=== PATIENT | female | born 1960 | race Caucasian/White ===

== ENCOUNTER 2017-01-06 19:59 | Emergency (ER) | payer OTHER ==
[~2017-01-06] VITALS: Ht 162.6 cm; Wt 84.4 kg
[2017-01-06 19:59] VITALS: BP 151/77
[~2017-01-06 19:59] MED LIST: MECL25TA3 PO
--- NOTE | 2017-01-06 20:46 | PHYS DOC ---
Past History Past Medical History: Asthma, Bipolar, Other Past Surgical History: No Surgical History, Tubal ligation Smoking: Cigarettes, Greater than 1 pack/day Alcohol Use: None Drug Use: None Adult General Chief Complaint Chief Complaint: ABNORMAL LABS [facility] HPI SHe is a pleasant 56-year-old female on multiple medications for her bipolar disorder, asthma who presents with reported hyperkalemia. She was seen at her primary care doctor's office for routine well check and the blood work was completed yesterday. She received a focal earlier this evening saying that her potassium level was 6.4. Patient has no complaints, no concerns, no symptoms. She is here just following instructions. She admits according to the physician that sent her here. She has on medications that may be causing her potassium to be elevated. Review of Systems Review of Systems Constitutional: Denies fever or chills [] Eyes: Denies change in visual acuity, redness, or eye pain [] HENT: Denies nasal congestion or sore throat [] Respiratory: Denies cough or shortness of breath [] Cardiovascular: No additional information not addressed in HPI [] GI: Denies abdominal pain, nausea, vomiting, bloody stools or diarrhea [] : Denies dysuria or hematuria [] Musculoskeletal: Denies back pain or joint pain [] Integument: Denies rash or skin lesions [] Neurologic: Denies headache, focal weakness or sensory changes [] Endocrine: Denies polyuria or polydipsia [] Allergies Allergies Allergies Coded Allergies Type Severity Reaction Last Updated Verified No Known Allergies Allergy Unknown 04/08/16 Yes Physical Exam Physical Exam Constitutional: Well developed, well nourished, no acute distress, non-toxic appearance. [] HENT: Normocephalic, atraumatic, bilateral external ears normal, oropharynx moist, no oral exudates, nose normal. [] Eyes: PERRLA, EOMI, conjunctiva normal, no discharge. [] Neck: Normal range of motion, no tenderness, supple, no stridor. [] Cardiovascular:Heart rate regular rhythm, no murmur [] Lungs & Thorax: Bilateral breath sounds clear to auscultation [] Abdomen: Bowel sounds normal, soft, no tenderness, no masses, no pulsatile masses. [] Skin: Warm, dry, no erythema, no rash. [] Extremities: No tenderness, no cyanosis, no clubbing, ROM intact, no edema. [] Neurologic: Alert and oriented X 3, normal motor function, normal sensory function, no focal deficits noted. [] Psychologic: Affect normal, judgement normal, mood normal. [] EKG EKG []EEG done on arrival timed 8:11 PM 01/06/2017 read by me demonstrate a heart rate of 81 there is a P-wave to every QRS interval this is normal sinus rhythm with a CO interval of 180 which is normal, QRS width of 86 which is normal, QTC which is 409 which is normal, there are no abnormalities consistent with acute hyperkalemia noted. Radiology/Procedures Radiology/Procedures [] Course & Med Decision Making Course & Med Decision Making Pertinent Labs and Imaging studies reviewed. (See chart for details) she presents with a history of being told she has hyperkalemia. Patient has no symptoms at this time upon arrival EKG shows no signs of hyperkalemia there are no flattened P waves are no PT waves no widening of the QRS complex. Patient will have a CMP completed and we will verify her potassium level. Time is now 9:23 PM patient's potassium was 4.5. Given her normal EKG and what seems to be a normal potassium I will send her home with follow-up with her PCP. [] Dragon Disclaimer Dragon Disclaimer This chart was dictated in whole or in part using Voice Recognition software in a busy, high-work load, and often noisy Emergency Department environment. It may contain unintended and wholly unrecognized errors or omissions. Departure Departure: Impression: Primary Impression: Well adult exam Disposition: HOME, SELF-CARE Condition: STABLE Referrals: PCP,CHIKIS (PCP) Patient Instructions: Basics of Medication Management Additional Instructions: My discharge plan Follow up: In addition patient is asked to followup with their primary doctor, within a week for followup examination and to address patient's ongoing medical conditions. Because patient does not have a regular medical doctor, a local physician Resource Sheet will be provided to establish care primary care. Patient is advised that in the Emergency Department primary complaints are addressed and only in light of known signs and symptoms. Patient should return immediately to the emergency department if new signs and symptoms develop or patient's condition worsens in any way. At time of discharge patient was in stable condition and had verbalized understanding of the discharge instructions. NITHIN CARTER MD Jan 06, 2017 20:46
[2017-01-06 21:12] LABS: ALBUMIN 3.2 g/dL (3.4-5.0); ALBUMIN/GLOBULIN RATIO 0.8 (1.0-1.7); CALCIUM 9.6 mg/dL (8.5-10.1); GFR 57.4; POTASSIUM 4.5 mmol/L (3.5-5.1); TOTAL BILIRUBIN 0.2 mg/dL (0.2-1.0); TOTAL PROTEIN 7.3 g/dL (6.4-8.2)
--- NOTE | 2017-01-07 02:04 | EKG ---
[address] [address] Test Date: 2017-01-06 Test Time: 20:11:42 Pat Name: KIRAN GARZA Department: Room: Gender: F [employer]: EMILIA : 1960 Requested By: NITHIN CARTER Order Number: [id number] Reading MD: Omar Donis Measurements Intervals [place] Rate: 81 P: 59 TN: 180 QRS: 53 QRSD: 86 T: 46 QT: 348 QTc: 409 Interpretive Statements SINUS RHYTHM Electronically Signed On 01-11-2017 8:19:36 CDT by Omar Donis
== END 2017-01-06 21:38 | disposition home or self-care (01) ==
LOC: ER 19:59
DX: Z00.00 Encounter for general adult medical examination without abnormal findings (principal); E87.5 Hyperkalemia; J45.909 Unspecified asthma, uncomplicated; F31.9 Bipolar disorder, unspecified; F17.210 Nicotine dependence, cigarettes, uncomplicated
CPT/HCPCS: 36415; 80053; 93005; 99285-25

== ENCOUNTER → 2017-05-23 | Outpatient (CLI) | payer OTHER ==
[2017-05-23 11:01] LABS: BASO # 0.1 x10^3/uL (0.0-0.2); BASO % 1 % (0-3); EOS # 0.2 x10^3/uL (0.0-0.7); EOS % 2 % (0-3); HEMATOCRIT 41.4 % (36.0-47.0); HEMOGLOBIN 13.6 g/dL (12.0-15.5); LYMPH # 2.3 x10^3/uL (1.0-4.8); LYMPH % 30 % (24-48); MEAN CORPUSCULAR HEMOGLOBIN 29 pg (25-35); MEAN CORPUSCULAR HGB CONC 33 g/dL (31-37); MEAN CORPUSCULAR VOLUME 89 fL (79-100); MONO # 0.7 x10^3/uL (0.0-1.1); MONO % 9 % (0-9); NEUT # 4.4 x10^3uL (1.8-7.7); NEUT % 58 % (31-73); PLATELET COUNT 257 x10^3/uL (140-400); RED BLOOD COUNT 4.65 x10^6/uL (3.50-5.40); RED CELL DISTRIBUTION WIDTH 14.5 % (11.5-14.5); WHITE BLOOD COUNT 7.6 x10^3/uL (4.0-11.0)
[2017-05-23 11:11] LABS: ALBUMIN 3.3 g/dL (3.4-5.0); ALBUMIN/GLOBULIN RATIO 0.7 (1.0-1.7); CALCIUM 9.3 mg/dL (8.5-10.1); CREATININE 1.1 mg/dL (0.6-1.0); GFR 51.4; POTASSIUM 4.6 mmol/L (3.5-5.1); TOTAL BILIRUBIN 0.1 mg/dL (0.2-1.0); TOTAL PROTEIN 7.8 g/dL (6.4-8.2)
[2017-05-23 13:28] LABS: FREE T4 0.85 ng/dL (0.76-1.46); THYROID STIM HORMONE (TSH) 1.174 uIU/mL (0.358-3.740)
== END | disposition home or self-care (01) ==
LOC: LAB 10:36
PROVIDERS: ATTEND Physician Assistant
DX: Z51.81 Encounter for therapeutic drug level monitoring (principal); Z79.899 Other long term (current) drug therapy; E87.5 Hyperkalemia; F17.210 Nicotine dependence, cigarettes, uncomplicated; F15.10 Other stimulant abuse, uncomplicated
CPT/HCPCS: 36415; 80053; 80061; 84439; 84443; 84480; 85025

== ENCOUNTER → 2017-06-28 | Outpatient (CLI) | payer OTHER ==
--- NOTE | 2017-07-12 12:09 | RAD ---
DATE: 06/28/2017 EXAM: DIGITAL SCREEN BILAT W/CAD HISTORY: Routine screening COMPARISON: 04/29/2014 This study was interpreted with the benefit of Computerized Aided Detection (CAD). The breast parenchyma shows scattered fibroglandular densities. Breast parenchyma level B. FINDINGS: No new or enlarging breast densities are seen. There are scattered microcalcifications in both breasts. The distribution again suggests a benign etiology. IMPRESSION: There is no mammographic evidence of malignancy in either breast. BI-RADS CATEGORY: 2 BENIGN FINDING(S) RECOMMENDED FOLLOW-UP: 12M 12 MONTH FOLLOW-UP PQRS compliance statement: Patient information was entered into a reminder system with a target due date for the next mammogram. Mammography is a sensitive method for finding small breast cancers, but it does not detect them all and is not a substitute for careful clinical examination. A negative mammogram does not negate a clinically suspicious finding and should not result in delay in biopsying a clinically suspicious abnormality. "Our facility is accredited by the [employer] Mammography Program."
== END | disposition home or self-care (01) ==
LOC: MAMMO 11:22
PROVIDERS: ATTEND Nurse Practitioner Family
DX: Z12.31 Encounter for screening mammogram for malignant neoplasm of breast (principal)
CPT/HCPCS: 77067

== ENCOUNTER 2017-08-21 21:21 | Inpatient (IN) | payer OTHER ==
[~2017-08-21] VITALS: Ht 162.6 cm; Wt 86.4 kg
--- NOTE | 2017-08-21 21:30 | ED.ADGEN ---
Past History Past Medical History: Asthma, Bipolar, Other Past Surgical History: No Surgical History, Tubal ligation Smoking: Cigarettes, Greater than 1 pack/day Alcohol Use: None Drug Use: None Adult General Chief Complaint Chief Complaint ".. All sudden I got pain in this Lt. leg... it been there all day..." HPI HPI Patient is a 56 year old female who presents with above hx and complaints left leg pain and edema. Patient denies any trauma to left leg. Pain is localized generalized throughout leg. There is some noted decrease of dorsal and posterior pedal pulses as compared to right leg. Capillary refilled more than 3 seconds in toes. There is noted edema in left leg. There is tenderness in left groin. No history of prior episodes of DVT or coagulopathy or prior similar presentations. Patient does smoke. No recent travel. No specific ill contacts. Has had multiple chigger bites to left ankle which appears somewhat inflamed. Patient denies any history of immunosuppression. Review of Systems Review of Systems Constitutional: Denies fever or chills [] Eyes: Denies change in visual acuity, redness, or eye pain [] HENT: Denies nasal congestion or sore throat [] Respiratory: Denies cough or shortness of breath [] Cardiovascular: No additional information not addressed in HPI [] GI: Denies abdominal pain, nausea, vomiting, bloody stools or diarrhea [] : Denies dysuria or hematuria [] Musculoskeletal: Denies back pain or joint pain []Complaints of Lt Leg pain. Integument: Denies rash or skin lesions [] Neurologic: Denies headache, focal weakness or sensory changes [] Endocrine: Denies polyuria or polydipsia [] All other systems were reviewed and found to be within normal limits, except as documented in this note. Family History Family History Non-contributory Current Medications Current Medications Current Medications Medications (Trade) Dose Ordered Sig/Sanjuana Start Time Stop Time Status Last Admin Dose Admin Aspirin (Children'S Aspirin) 81 mg DAILY 08/22/17 09:00 Ceftriaxone Sodium (Rocephin Im) 1 gm QHS 08/22/17 21:00 Enoxaparin Sodium (Lovenox 100mg Syringe) 90 mg 1X ONCE 08/21/17 22:00 08/21/17 22:07 DC 08/21/17 22:00 90 MG Enoxaparin Sodium (Lovenox 80mg Syringe) 80 mg BID 08/22/17 09:00 Ketorolac Tromethamine (Toradol) 15 mg 1X ONCE 08/21/17 22:00 08/21/17 22:08 DC 08/21/17 22:00 15 MG Lactated Ringer's 1,000 ml @ 1,000 mls/hr Q1H 08/21/17 22:00 08/21/17 22:59 DC 08/21/17 23:11 1,000 MLS/HR Tetanus/ Diphtheria Toxoids Adsorbed (Tenivac Vial) 0.5 ml ONCE ONCE 08/21/17 22:00 08/21/17 22:08 DC 08/21/17 22:00 0.5 ML Allergies Allergies Allergies Coded Allergies Type Severity Reaction Last Updated Verified No Known Allergies Allergy Unknown 04/08/16 Yes Physical Exam Physical Exam Constitutional: Moderately acute distress, non-toxic appearance. [] HENT: Normocephalic, atraumatic, bilateral external ears normal, oropharynx moist, no oral exudates, nose normal. [] Eyes: PERRLA, EOMI, conjunctiva normal, no discharge. [] Neck: Normal range of motion, no tenderness, supple, no stridor. [] Cardiovascular:Heart rate regular rhythm, no murmur [] Lungs & Thorax: Bilateral breath sounds equal apexes with scattered wheezes on auscultation [] Abdomen: Bowel sounds normal, soft, no tenderness, no masses, no pulsatile masses. [] Skin: Warm, dry, no erythema, no rash. [] Back: No tenderness, no CVA tenderness. [] Extremities: No tenderness, no cyanosis, no clubbing, ROM intact, no edema. [] Except finding in Lt. Leg as per HPI Neurologic: Alert and oriented X 3, normal motor function, normal sensory function, no focal deficits noted. [] Psychologic: Affect anxious, judgement normal, mood normal. [] Current Patient Data Vital Signs Vital Signs Date Time Temp Pulse Resp B/P (MAP) Pulse Ox O2 Delivery O2 Flow Rate FiO2 08/21/17 21:38 98.1 96 20 94 Room Air Lab Results Laboratory Tests Test 08/21/17 22:55 White Blood Count 14.6 x10^3/uL (4.0-11.0) H Red Blood Count 4.44 x10^6/uL (3.50-5.40) Hemoglobin 13.1 g/dL (12.0-15.5) Hematocrit 39.3 % (36.0-47.0) Mean Corpuscular Volume 88 fL (79-100) Mean Corpuscular Hemoglobin 29 pg (25-35) Mean Corpuscular Hemoglobin Concent 33 g/dL (31-37) Red Cell Distribution Width 13.3 % (11.5-14.5) Platelet Count 202 x10^3/uL (140-400) Neutrophils (%) (Auto) 80 % (31-73) H Lymphocytes (%) (Auto) 10 % (24-48) L Monocytes (%) (Auto) 8 % (0-9) Eosinophils (%) (Auto) 1 % (0-3) Basophils (%) (Auto) 1 % (0-3) Neutrophils # (Auto) 11.7 x10^3uL (1.8-7.7) H Lymphocytes # (Auto) 1.5 x10^3/uL (1.0-4.8) Monocytes # (Auto) 1.2 x10^3/uL (0.0-1.1) H Eosinophils # (Auto) 0.1 x10^3/uL (0.0-0.7) Basophils # (Auto) 0.1 x10^3/uL (0.0-0.2) Prothrombin Time 10.1 SEC (9.4-11.4) Prothrombin Time INR 1.0 (0.9-1.1) PTT 26 SEC (23-33) D-Dimer (Hattie) 4.66 mg/L (0.00-0.50) H Sodium Level 134 mmol/L (136-145) L Potassium Level 3.9 mmol/L (3.5-5.1) Chloride Level 100 mmol/L (98-107) Carbon Dioxide Level 24 mmol/L (21-32) Anion Gap 10 (6-14) Blood Urea Nitrogen 21 mg/dL (7-20) H Creatinine 1.6 mg/dL (0.6-1.0) H Estimated GFR (Cockcroft-Gault) 33.3 Glucose Level 126 mg/dL (70-99) H Calcium Level 8.6 mg/dL (8.5-10.1) Magnesium Level 2.1 mg/dL (1.8-2.4) Total Bilirubin 0.3 mg/dL (0.2-1.0) Direct Bilirubin 0.1 mg/dL (0.0-0.2) Aspartate Amino Transferase (AST) 23 U/L (15-37) Alanine Aminotransferase (ALT) 27 U/L (14-59) Alkaline Phosphatase 140 U/L (46-116) H Creatine Kinase 81 U/L (26-192) Creatine Kinase MB (Mass) 0.6 ng/mL (0.0-3.6) Creatine Kinase MB Relative Index 0.7 % (0-4) Troponin I Quantitative < 0.017 ng/mL (0-0.055) Total Protein 7.7 g/dL (6.4-8.2) Albumin 3.1 g/dL (3.4-5.0) L EKG EKG My interpretation EKG shows a sinus rhythm at 88 bpm. No findings acute morphology. [] Radiology/Procedures Radiology/Procedures My interpretation chest x-ray shows no acute cardiopulmonary findings. Does have increased atelectasis as compared to chest x-ray on 04/08/2016[] Course & Med Decision Making Course & Med Decision Making Pertinent Labs and Imaging studies reviewed. (See chart for details) Discussed presentation, testing and tx. plan with Dr. Higuera- will admit for further eval. and tx. US of Lt. leg pending at time of admission. [] Final Impression Final Impression 1. Lt. Leg[]Pain 2. Edema 3. Cellulitis 4. Chigger Bites 5. DM 6. Elevated Bun/Creat 7. Malnutrition 8. Leukocytosis- 14.6 9. Elevated D-dimer 10.Malnutrition- Alb. 3.1 Dragon Disclaimer Dragon Disclaimer This electronic medical record was generated, in whole or in part, using a voice recognition dictation system. JOHN LUCIA MD Aug 21, 2017 21:30
[2017-08-21] MEDS ORDERED: ENOXAPARIN ** NOTE DOSE ** SYRINGE SQ ONE (22:00)
[2017-08-21] MEDS ORDERED: KETOROLAC 15 MG/ML VIAL. IV ONE (22:00)
[2017-08-21] MEDS ORDERED: TETANUS AND DIPHTHERIA TOX/PF 0.5 ML VIAL. VAX IM ONE (22:00)
[2017-08-21] MEDS ORDERED: ASPIRIN 81 MG TAB.CHEW PO ONE (22:00)
[2017-08-21] MEDS ORDERED: cefTRIAXone IM 1 GM VIAL IM ONE (22:00)
[2017-08-21] MEDS ORDERED: IV RINGERS SOLUTION,LACTATED 1,000 ML IV SCH (22:00)
--- NOTE | 2017-08-21 22:07 | EKG ---
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
[2017-08-21 23:33] LABS: BASO # 0.1 x10^3/uL (0.0-0.2); BASO % 1 % (0-3); EOS # 0.1 x10^3/uL (0.0-0.7); EOS % 1 % (0-3); HEMATOCRIT 39.3 % (36.0-47.0); HEMOGLOBIN 13.1 g/dL (12.0-15.5); LYMPH # 1.5 x10^3/uL (1.0-4.8); LYMPH % 10 % (24-48); MEAN CORPUSCULAR HEMOGLOBIN 29 pg (25-35); MEAN CORPUSCULAR HGB CONC 33 g/dL (31-37); MEAN CORPUSCULAR VOLUME 88 fL (79-100); MONO # 1.2 x10^3/uL (0.0-1.1); MONO % 8 % (0-9); NEUT # 11.7 x10^3uL (1.8-7.7); NEUT % 80 % (31-73); PLATELET COUNT 202 x10^3/uL (140-400); RED BLOOD COUNT 4.44 x10^6/uL (3.50-5.40); RED CELL DISTRIBUTION WIDTH 13.3 % (11.5-14.5); WHITE BLOOD COUNT 14.6 x10^3/uL (4.0-11.0)
[2017-08-22 00:03] LABS: ALBUMIN 3.1 g/dL (3.4-5.0); CALCIUM 8.6 mg/dL (8.5-10.1); CREATININE 1.6 mg/dL (0.6-1.0); DIRECT BILIRUBIN 0.1 mg/dL (0.0-0.2); GFR 33.3; MAGNESIUM 2.1 mg/dL (1.8-2.4); POTASSIUM 3.9 mmol/L (3.5-5.1); TOTAL BILIRUBIN 0.3 mg/dL (0.2-1.0); TOTAL PROTEIN 7.7 g/dL (6.4-8.2)
[2017-08-22 01:45] VITALS: BP 112/67
[2017-08-22] MEDS ORDERED: DULO20CA50 PO (05:33)
[2017-08-22] MEDS ORDERED: TRAZ150T49 PO (05:34)
[2017-08-22 05:40] LABS: BACTERIA,URINE 0 /HPF (0-FEW); BILIRUBIN,URINE NEG (NEG); CLARITY,URINE CLEAR; COLOR,URINE YELLOW; GLUCOSE,URINE NEG (NEG); NITRITE,URINE NEG (NEG); RBC,URINE 0 /HPF (0-2); SQUAMOUS EPITHELIAL CELL,UR FEW /LPF; UROBILINOGEN,URINE 0.2 mg/dL (0.2 mg/dL); WBC,URINE OCC /HPF (0-4)
[2017-08-22 05:43] LABS: BARBITURATES NEG (NEG); BENZODIAZEPINES NEG (NEG); CANNABINOIDS NEG (NEG); COCAINE NEG (NEG); METHADONE NEG (NEG); OPIATES NEG (NEG); PHENCYCLIDINE NEG (NEG)
[2017-08-22 05:45] LABS: AMPHETAMINE/METHAMPHETAMINE NEG (NEG)
[2017-08-22 06:03] VITALS: BP 97/57
--- NOTE | 2017-08-22 08:32 | RAD ---
CHEST PA LATERAL History: SHORTNESS OF BREATH. Comparison: April 08, 2016. Cardiomediastinal silhouette is not enlarged. No focal infiltrate. No pleural effusion. No pneumothorax. IMPRESSION: No active disease in the chest Electronically signed by: Brandon Minaya MD (08/22/2017 8:28 AM) [id number]
[2017-08-22] MEDS: ENOXAPARIN ** NOTE DOSE ** SYRINGE SQ SCH ×2 (08:56→22:30)
[2017-08-22] MEDS: ASPIRIN 81 MG TAB.CHEW PO SCH (08:56)
[2017-08-22 10:16] LABS: BASO # 0.1 x10^3/uL (0.0-0.2); BASO % 1 % (0-3); EOS # 0.2 x10^3/uL (0.0-0.7); EOS % 3 % (0-3); HEMATOCRIT 36.8 % (36.0-47.0); HEMOGLOBIN 12.3 g/dL (12.0-15.5); LYMPH # 1.8 x10^3/uL (1.0-4.8); LYMPH % 20 % (24-48); MEAN CORPUSCULAR HEMOGLOBIN 30 pg (25-35); MEAN CORPUSCULAR HGB CONC 33 g/dL (31-37); MEAN CORPUSCULAR VOLUME 89 fL (79-100); MONO # 0.5 x10^3/uL (0.0-1.1); MONO % 6 % (0-9); NEUT # 6.7 x10^3uL (1.8-7.7); NEUT % 72 % (31-73); PLATELET COUNT 187 x10^3/uL (140-400); RED BLOOD COUNT 4.15 x10^6/uL (3.50-5.40); RED CELL DISTRIBUTION WIDTH 13.4 % (11.5-14.5); WHITE BLOOD COUNT 9.3 x10^3/uL (4.0-11.0)
[2017-08-22 10:24] LABS: ALBUMIN 2.7 g/dL (3.4-5.0); ALBUMIN/GLOBULIN RATIO 0.6 (1.0-1.7); CALCIUM 8.2 mg/dL (8.5-10.1); CREATININE 1.3 mg/dL (0.6-1.0); GFR 42.4; POTASSIUM 3.3 mmol/L (3.5-5.1); TOTAL BILIRUBIN 0.3 mg/dL (0.2-1.0)
[2017-08-22 11:32] VITALS: BP 101/61
[2017-08-22 14:57] VITALS: BP 94/56
[2017-08-22] MEDS ORDERED: MECLIZINE 12.5 MG TABLET. PO PRN (17:00)
[2017-08-22] MEDS ORDERED: DEXTROSE 50% 25 GM / 50ML DISP.SYRIN. IV PRN (17:15)
[2017-08-22] MEDS ORDERED: WARFARIN 10 MG TABLET. PO SCH (17:30)
--- NOTE | 2017-08-22 17:53 | RAD ---
INDICATION: Left leg redness and swelling. TECHNIQUE: Grayscale, color-flow, and spectral waveform analysis was performed. No comparison is available. FINDINGS: Right leg is negative for deep vein thrombosis with all vessels compressible and with normal phasicity of waveform and augmentation. Exam is positive for deep vein thrombosis in the left lower extremity. There is occlusive thrombus in the common femoral vein and superficial femoral vein. There is nonocclusive thrombus within the popliteal vein and deep femoral vein. There is nonocclusive thrombus in the great saphenous vein. IMPRESSION: 1. Exam is positive for deep vein thrombosis in the left lower extremity. 2. There is no deep vein thrombosis in the right lower extremity. Electronically signed by: Syed Lewis MD (08/22/2017 5:50 PM) [facility]
[2017-08-22] MEDS ORDERED: cefTRIAXone IV Push 1 GM VIAL. IVP SCH (18:00)
[2017-08-22] MEDS: IV NORMAL SALINE 1,000ML 1,000 ML IV SCH (18:29)
[2017-08-22] MEDS ORDERED: IOHEXOL 240 MG/ML 50ML VIAL. PO ONE (19:00)
[2017-08-22] MEDS ORDERED: CONTRAST GIVEN MC PRN (19:00)
[2017-08-22 19:24] VITALS: BP 124/75
[2017-08-22] MEDS: ACETAMINOPHEN 325 MG TABLET PO PRN (19:34)
[2017-08-22] MEDS ORDERED: cefTRIAXone IM 1 GM VIAL IM SCH (21:00)
[2017-08-22] MEDS ORDERED: traZODone 150 MG TABLET. PO SCH (21:00)
--- NOTE | 2017-08-22 22:11 | HP ---
ADMIT DATE: 08/22/2017 HISTORY OF PRESENT ILLNESS: The patient is a 56-year-old female patient who came to the Emergency Room complaining of pain in her left leg that started all of a sudden. She also complained of swelling. She denied any trauma to her left leg. Her pain is generalized throughout the leg. There is some noted degrees of dorsal and posterior pedal pulses as compared to the right leg. Capillary refill more than 30 seconds and loss. There is noted edema in the left leg. There is also tenderness in the left groin. She has no history of previous DVT or coagulopathy or prior similar presentation. She does smoke, has had multiple chigger bites in her left ankle, which appear somewhat inflamed. She was extensively investigated and her lab work showed that her white cell count was elevated at 14,600. Also, lab work showed an elevated BUN and creatinine. Her D-dimer was elevated at 4.66 and her urinalysis was unremarkable. Toxic screen was mostly negative. The patient was admitted with left leg pain and edema, questionable cellulitis, chigger bites, type 2 diabetes, [id number] versus acute kidney failure, malnutrition, leukocytosis, and elevated D-dimer and malnutrition. PAST MEDICAL HISTORY: Significant for type 2 diabetes, bipolar disorder. She has also chronic kidney disease versus acute on chronic kidney disease. MEDICATIONS: She is currently on following medications: She is on Cymbalta ____ mg once a day, trazodone 150 mg at bedtime and meclizine 25 mg 4 times a day. She is also on Latuda 10 mg once a day. ALLERGIES: She has no known drug allergies. FAMILY HISTORY: She has one sister and one brother, one sister older and one younger brother, both healthy. Her father at the age of 62 because of colon cancer. Mother at age of 51 because of brain tumor. SOCIAL HISTORY: She is , has 2 sons and 2 daughters. She smokes half a pack a day, does not drink alcohol or do recreational drugs. She is currently on disability. REVIEW OF SYSTEMS: The patient denied any blurring of vision, cataract, glaucoma or macular degeneration. Denied any earache, tinnitus or sensorineural deafness. Denied any nosebleeds, stuffy nose or postnasal drip. Denied any sore throat, sore tongue, toothache, hoarseness of voice or difficulty swallowing. Denied any nausea, vomiting, diarrhea or constipation. Denied any hematemesis, melena or hematochezia. Denied any dysuria, frequency or hematuria. Denied any chest pain, shortness of breath, orthopnea, paroxysmal nocturnal dyspnea. Denied any cough, phlegm or hemoptysis. Denied any chills, rigors, or fever. Denied any dizziness, lightheadedness, or vertigo. PHYSICAL EXAMINATION: GENERAL: On arrival to the Emergency Room, she was somewhat pale, no jaundice, cyanosis, or thyromegaly. No jugular venous distension. No limb edema. VITAL SIGNS: Her heart rate was 96, blood pressure was 108/61, temperature was 98.1, respiratory rate 20, and oxygen saturation was 94%. HEAD, EYES, EARS, NOSE, AND THROAT: Showed normocephalic, atraumatic. NECK: Supple. HEART: Showed normal first and second heart sounds. No gallop, rub or murmur. CHEST: Clear to auscultation. No crepitation or rhonchi. ABDOMEN: Distended, soft, nontender. No guarding or rigidity. No organomegaly. Hernial orifices intact. Bowel sounds normal. NEUROLOGIC: She was awake, alert, responding appropriately. Cranial nerves intact. She moves extremities without difficulty. She ambulates normally without assistance or assistive devices. LABORATORY DATA: Her lab work on admission showed a white cell count of 14,600, hemoglobin 13, hematocrit 39, MCV 88 and platelet count of ____. Her chemistry showed a serum sodium 134, potassium 3.9, chloride 100, bicarbonate 24, anion gap of 10, BUN 21, creatinine 1.6, estimated GFR was 53 mL per minute. Her glucose was 126, calcium was 8.6, magnesium 2.1. Total bilirubin, AST, ALT, alkaline phosphatase were normal. Her CK was 81, CK-MB was 0.6. Total protein 7.7, albumin 3.1. Her TSH was 1.113. Her prothrombin time was 10.1, INR of 1, aPTT was 26. D-dimer was 4.66. Urinalysis showed the urine was yellow, clear with a pH of 5.5, specific gravity 1.005. The urine was negative for protein, glucose, ketones, blood, nitrite, and trace of leukocyte esterase with 0 rbc's, occasional wbc's, and 0 bacteria. Toxic screen was negative. Her chest x-ray, which showed the cardiomediastinal silhouette is not enlarged. No local infiltrate, no pleural effusion or pneumothorax. IMPRESSION: The patient has no active disease. She was admitted and was started on IV antibiotic and Lovenox for possible left lower extremity deep vein thrombosis. She has received 1 liter of fluid. We will obviously repeat her labs tomorrow and next day and decide on further management, arrange for Doppler and arterial as Dr. Be recommended venous Doppler ultrasound; however, when I saw her, her arterial pulsation on the left dorsalis pedis and tibialis posterior easily palpable. We will do venous Doppler. I start her on IV fluid to improve her kidney function, so that we can do a V/Q scan. ANDRES RAMIREZ MD DR: DANIE/jero JOB#: [id number] / [id number]
[2017-08-22] MEDS: LACTOBACILLUS RHAMNOSUS GG 1 CAPSULE. PO SCH (22:29)
[2017-08-22 23:23] VITALS: BP 111/62
--- NOTE | 2017-08-23 00:33 | PN ---
DATE: 08/22/2017 SUBJECTIVE: The patient is resting, slightly propped up in bed, in no apparent distress. She continued to complain of pain, swelling of her left lower extremity. Swelling extends all the way to her groin; however, when she is lying flat, the redness disappears. According to her, she has some chigger bites in the anterior aspect of her left leg. Nursing staff did not voice any concern and stated that she had an uneventful night. PHYSICAL EXAMINATION: GENERAL: When I examined her this afternoon, she looked well and was clearly in no apparent respiratory distress, pale, but no jaundice, cyanosis or thyromegaly. No jugular venous distension. No limb edema. VITAL SIGNS: Her heart rate was 79, blood pressure was 94/56, temperature was 98.4, respiratory rate was 19 and oxygen saturation was 92%. HEAD, EYES, EARS, NOSE AND THROAT: Showed normocephalic, atraumatic. NECK: Supple. HEART: Showed normal first and second heart sounds with no gallop, rub or murmur. CHEST: Clear to auscultation. No crepitation or rhonchi. ABDOMEN: Distended, soft, nontender. No guarding or rigidity. No organomegaly. Hernial orifice intact. Bowel sounds normal. NEUROLOGIC: She is awake, alert, responding appropriately. Cranial nerves intact. She moves extremities without difficulty. Her intake was 1000. No output was recorded. LABORATORY DATA: This morning showed her white cell count is down to 9300, hemoglobin 12.3, hematocrit 36.8, MCV 89 and platelet count of 187,000. Her chemistry showed a serum sodium 135, potassium 3.3, chloride 102, bicarbonate 23, anion gap of 10, BUN 19, creatinine 1.3. Estimated GFR was 42 mL per minute. Her glucose 166. Calcium was 8.2. Total bilirubin, AST and ALT are normal. Alkaline phosphatase slightly elevated. Total protein 7, albumin 2.7. ASSESSMENT: Questionable left lower extremity cellulitis for which she is now on ceftriaxone, possible lower extremity deep vein thrombosis. I am concerned about the extent of the swelling. PLAN: My plan is to start her on IV fluid as her kidney function seems to be improving and I will arrange for her to have a CT scan of the abdomen and pelvis with oral contrast only to see if there is anything in the pelvic area causing pressure on the perhaps the veins and the lymphatics. ANDRES RAMIREZ MD DR: DANIE/jero JOB#: [id number] / [id number]
[2017-08-23] MEDS: IV NORMAL SALINE 1,000ML 1,000 ML IV SCH ×2 (03:59→13:42)
[2017-08-23 05:25] VITALS: BP 116/62
[2017-08-23] MEDS: ACETAMINOPHEN 325 MG TABLET PO PRN ×2 (05:26→13:44)
[2017-08-23 06:56] LABS: BASO # 0.1 x10^3/uL (0.0-0.2); BASO % 1 % (0-3); EOS # 0.2 x10^3/uL (0.0-0.7); EOS % 2 % (0-3); HEMATOCRIT 34.5 % (36.0-47.0); HEMOGLOBIN 11.6 g/dL (12.0-15.5); LYMPH # 1.4 x10^3/uL (1.0-4.8); LYMPH % 14 % (24-48); MEAN CORPUSCULAR HEMOGLOBIN 30 pg (25-35); MEAN CORPUSCULAR HGB CONC 34 g/dL (31-37); MEAN CORPUSCULAR VOLUME 88 fL (79-100); MONO % 9 % (0-9); NEUT # 7.8 x10^3uL (1.8-7.7); NEUT % 75 % (31-73); PLATELET COUNT 196 x10^3/uL (140-400); RED CELL DISTRIBUTION WIDTH 13.2 % (11.5-14.5); WHITE BLOOD COUNT 10.4 x10^3/uL (4.0-11.0)
[2017-08-23 07:10] LABS: ALBUMIN 2.5 g/dL (3.4-5.0); ALBUMIN/GLOBULIN RATIO 0.6 (1.0-1.7); CALCIUM 8.2 mg/dL (8.5-10.1); GFR 57.4; TOTAL BILIRUBIN 0.2 mg/dL (0.2-1.0); TOTAL PROTEIN 6.5 g/dL (6.4-8.2)
[2017-08-23] MEDS: INSULIN LISPRO 300 UNITS/3 ML INSULN.PEN. SQ SCH ×2 (08:00→12:00)
[2017-08-23] MEDS ORDERED: DULoxetine HCL 20 MG CAPSULE.DR PO SCH (09:00)
[2017-08-23] MEDS: LACTOBACILLUS RHAMNOSUS GG 1 CAPSULE. PO SCH (09:06)
[2017-08-23] MEDS: ASPIRIN 81 MG TAB.CHEW PO SCH (09:07)
[2017-08-23] MEDS: ENOXAPARIN ** NOTE DOSE ** SYRINGE SQ SCH (09:07)
--- NOTE | 2017-08-23 09:07 | RAD ---
PQRS Compliance Statement: One or more of the following individualized dose reduction techniques were utilized for this examination: 1. Automated exposure control 2. Adjustment of the mA and/or kV according to patient size 3. Use of iterative reconstruction technique CT abdomen/pelvis without contrast 08/22/2017 7:57 PM INDICATION: Lymph node swelling. Positive left thigh DVT. COMPARISON: None available TECHNIQUE: Multiple axial CT images of the abdomen and pelvis were obtained without intravenous contrast. Coronal and sagittal reformats are provided. FINDINGS: Lung bases are clear. Heart size is within normal limits. Evaluation of the solid abdominal viscera is limited by lack of intravenous contrast. There are no suspicious hepatic lesions. Spleen, bilateral adrenal glands, pancreas and gallbladder are normal in appearance. A phrygian cap is noted. Abdominal aorta is normal in course and caliber. No pathologically enlarged lymph nodes are identified in abdomen or pelvis. There is no free fluid or free intraperitoneal air. The kidneys are relatively symmetric in appearance. There is no suspicious renal mass within the limitations of a noncontrast examination. There is no hydronephrosis. There are no calculi within the kidneys, ureters or urinary bladder. Oral contrast was administered. Opacified bowel loops demonstrate normal mucosal fold pattern. Small and large bowel are normal in caliber. There is no evidence for bowel obstruction. There are no pericolonic inflammatory changes. A normal, nondilated appendix is visualized without adjacent inflammatory changes. There is fat stranding identified along the left common iliac, external and internal iliac vessels in the left hemipelvis along the left pelvic sidewall. There is no thickening of the adjacent musculature. No inflamed adjacent bowel loops. Recommend correlation with any recent vascular procedure. No pathologically enlarged lymph nodes are visualized. There is no retroperitoneal hematoma. Urinary bladder is within normal limits given degree of distention. Uterus and adnexa are normal in appearance. No suspicious osseous lesion is identified. IMPRESSION: 1. There is fat stranding identified along the left common iliac, external and internal iliac vessels in the left hemipelvis along the left pelvic sidewall. There is no thickening of the adjacent musculature. No inflamed adjacent bowel loops. Recommend correlation with any recent vascular procedure. No pathologically enlarged lymph nodes are visualized. There is no retroperitoneal hematoma. In the setting of thrombus within the left thigh, thrombophlebitis is a differential consideration. Electronically signed by: Alexa Mckeon MD (08/23/2017 9:04 AM) [facility]
[2017-08-23 11:14] VITALS: BP 102/70
[2017-08-23] MEDS ORDERED: TRAM50TA PO (14:42)
[2017-08-23] MEDS ORDERED: CEPH-264 PO (14:52)
--- NOTE | 2017-08-23 16:18 | DS ---
DATE OF DISCHARGE: 08/22/2017 HOSPITAL COURSE: The patient is a 56-year-old female patient who came to the Emergency Room with a complaint of pain and swelling of her right lower extremity. Initial evaluation showed that her white cell count was slightly elevated. Her BUN and creatinine are high and D-dimer was elevated at 4.66. Urinalysis is unremarkable. Toxic screen was negative. She was admitted with left lower leg edema, questionable cellulitis, chigger bites, type 2 diabetes, chronic versus acute kidney injury, malnutrition, and leukocytosis. We did start her empirically on IV antibiotic as well as Lovenox 80 mg subcutaneously twice a day. She was also started on ceftriaxone 1 gram IV daily. Her chest x-ray showed no active disease in the chest and did a venous Doppler ultrasound that showed that she has deep vein thrombus in the left lower extremity. CT scan showed that there is fat stranding identified along with the left common iliac, external and internal iliac vessels in the left hemipelvis along with the left pelvic side wall. There is no thickening of the adjacent musculature. No inflamed adjacent bowel loops. Recommend correlation with any recent vascular procedure. No pathologically enlarged lymph nodes are visualized. There is no retroperitoneal hematoma in the setting of thrombus within the left thigh, thrombophlebitis is a differential consideration. On questioning her today, she denied any chest pain, denied any shortness of breath, cough, phlegm, or hemoptysis. PHYSICAL EXAMINATION: GENERAL: When I examined her, she was resting flat, comfortably in bed, in no apparent respiratory distress. No pallor, jaundice, cyanosis, or thyromegaly. No jugular venous distension. No limb edema. VITAL SIGNS: Her heart rate was 74, blood pressure 102/70, temperature was 98.1, respiratory rate 20, and oxygen saturation was 93% on room air. HEAD, EYES, EARS, NOSE AND THROAT: Normocephalic, atraumatic. NECK: Supple. HEART: Showed normal first and second sounds. No gallop, rub or murmur. CHEST: Clear to auscultation. No crepitation or rhonchi. ABDOMEN: Distended, soft, and nontender. No guarding or rigidity. No organomegaly. Hernial orifice intact. Bowel sounds normal. NEUROLOGIC: She is awake, alert, responding appropriately. Cranial nerves intact. She moves extremities without difficulty. She ambulates without assistance or assistive devices. LABORATORY DATA: Her lab work this morning showed her prothrombin time was 10.4, INR of 1. White cell count came down to 10,400, hemoglobin 11.6, hematocrit 34.5, MCV 88 and platelet count 296,000. Her chemistry showed that her sodium was 135, potassium 3.5, chloride 102, bicarbonate 23, anion gap of 10, BUN 19, creatinine 1.3. In fact, her serum sodium today was 141, potassium 4, chloride 108, bicarbonate 25, anion gap of 8, BUN 16, creatinine 1, estimated GFR was 57 mL per minute. Her glucose was 94, calcium was 8.2. Total bilirubin, AST, ALT, alkaline phosphatase were normal. Her total protein was 6.5, albumin was 2.5. DISCHARGE MEDICATIONS: The patient was discharged home to continue on Eliquis 10 mg twice a day for 7 days and then 5 mg twice a day for a total of 6 months. She is also discharged on tramadol 50 mg every 6 hours as needed, duloxetine for Cymbalta 20 mg once a day, meclizine 25 mg 4 times a day and trazodone 150 mg at bedtime as well as Keflex 500 mg 3 times a day for 1 week. ANDRES RAMIREZ MD DR: DANIE/jero JOB#: [id number] / [id number]
== END 2017-08-23 15:30 | disposition home or self-care (01) | DRG 871 ==
LOC: ER 21:21 → UNDOADMIN 08-22 00:30 → 1 SOUTH 08-22 00:30 → ER 08-22 01:10
PROVIDERS: ADMIT Internal Medicine; ATTEND Internal Medicine
DX: A41.9 Sepsis, unspecified organism (principal); N17.0 Acute kidney failure with tubular necrosis; I82.412 Acute embolism and thrombosis of left femoral vein; E46 Unspecified protein-calorie malnutrition; L03.116 Cellulitis of left lower limb; I82.432 Acute embolism and thrombosis of left popliteal vein; F31.9 Bipolar disorder, unspecified; J45.909 Unspecified asthma, uncomplicated; F17.210 Nicotine dependence, cigarettes, uncomplicated; E11.9 Type 2 diabetes mellitus without complications; B88.0 Other acariasis; Z68.32 Body mass index [BMI] 32.0-32.9, adult; Z80.0 Family history of malignant neoplasm of digestive organs; Z98.51 Tubal ligation status; Z79.899 Other long term (current) drug therapy
CPT/HCPCS: 36415; 71046; 74176; 80048; 80053; 80076; 80307; 81001; 82553; 82947; 83735; 84443; 84484; 85025; 85379; 85610; 85730; 87040; 87086; 90471; 90714; 93005; 93970; 96360; 96372; G0238; J0696; J1650; J1815; J1885; J7120; Q9966; 99285-25; G0479; J7030

== ENCOUNTER → 2019-01-30 | Outpatient (CLI) | payer OTHER ==
[~2019-01-30] MED LIST changes: +CEPH-264 PO; +DULO20CA50 PO; +TRAM50TA PO; +TRAZ150T49 PO
--- NOTE | 2019-02-01 13:50 | RAD ---
DATE: 01/30/2019. EXAM: DIGITAL SCREEN BILAT W/CAD. HISTORY: Routine mammographic screening. COMPARISON: 06/28/2017. This study was interpreted with the benefit of Computerized Aided Detection (CAD). FINDINGS: Breast Density: SCATTERED The breast parenchyma shows scattered fibroglandular densities. Breast parenchyma level B.. Scattered calcifications are stable and benign. There are no suspicious masses, microcalcifications or architectural distortion. The parenchymal pattern is stable. BI-RADS CATEGORY: 2 BENIGN FINDING(S). RECOMMENDED FOLLOW-UP: 12M 12 MONTH FOLLOW-UP. PQRS compliance statement: Patient information was entered into a reminder system with a target due date 01/31/2020 for the next mammogram. Mammography is a sensitive method for finding small breast cancers, but it does not detect them all and is not a substitute for careful clinical examination. A negative mammogram does not negate a clinically suspicious finding and should not result in delay in biopsying a clinically suspicious abnormality. "Our facility is accredited by the [employer] Mammography Program."
== END | disposition home or self-care (01) ==
LOC: MAMMO 08:37
PROVIDERS: ATTEND Physician Assistant Medical
DX: Z12.31 Encounter for screening mammogram for malignant neoplasm of breast (principal); N64.89 Other specified disorders of breast
CPT/HCPCS: 77067